=== PATIENT | female | born 1975 | race Caucasian/White ===

== ENCOUNTER 2020-11-16 22:39 | Emergency (ER) | payer OTHER ==
[~2020-11-16] VITALS: Ht 157.5 cm; Wt 115.2 kg
[~2020-11-16 22:39] MED LIST: BUSPAR 5 MG TABL5 M1; COZAAR 25 MG TA25 M1 PO; DUONEB 2.5-0.5 M3 ML INH; ERYTHROMYCIN E3.5 G3 OPHTHALMIC; ESKALITH300 MG; FLONASE 0.05%50 MCG NASAL; KEFLEX500 MG PO; LEVAQUIN 500 M500 MG PO; LEVOTHYROXIN0.075 MG PO; NORCO 5-325 TA1 EACH PO; PAXIL10 MG; PREDNISONE 20 M20 M1 PO; PROMETHAZINE-D120 ML PO; XANAX 0.5 MG0.5 M1
[2020-11-16 23:17] LABS: URINE BILIRUBIN NEGATIVE (Negative); URINE BLOOD 2+ (Negative); URINE CLARITY CLOUDY; URINE COLOR YELLOW; URINE GLUCOSE-RANDOM NEGATIVE (Negative); URINE KETONES NEGATIVE (Negative); URINE PROTEIN 2+ (Negative); URINE SPECIFIC GRAVITY 1.015 (1.005-1.030); URINE UROBILINOGEN 0.2 E.U./dl (0.2-1.0)
[2020-11-16 23:20] LABS: URINE LEUKOCYTES-REFLEX 3+ (Negative); URINE NITRITE-REFLEX POSITIVE (Negative)
[2020-11-16] MEDS ORDERED: PYRIDIUM200 M2 PO (23:37)
[2020-11-16] MEDS ORDERED: CEPHALEXIN250 MG PO (23:37)
[2020-11-16 23:40] LABS: CASTS None Seen /LPF (None Seen); SQUAMOUS 4-10 Moderate /LPF (0-3)
[2020-11-16 23:41] LABS: BACTERIA-REFLEX >30 Many /HPF (None Seen); CRYSTALS None Seen /LPF (None Seen); URINE WBC-REFLEX >25 Many /HPF (0-5)
[2020-11-17 00:03] VITALS: BP 180/98
== END 2020-11-17 00:04 | disposition home or self-care (01) ==
LOC: M.ERS 22:39
PROVIDERS: Emergency Medicine
DX: N39.0 Urinary tract infection, site not specified (principal); I10 Essential (primary) hypertension; F41.9 Anxiety disorder, unspecified; F31.9 Bipolar disorder, unspecified; F17.200 Nicotine dependence, unspecified, uncomplicated; Z79.899 Other long term (current) drug therapy; Z88.5 Allergy status to narcotic agent; Z88.2 Allergy status to sulfonamides

== ENCOUNTER 2021-01-22 13:16 | Emergency (ER) | payer OTHER ==
[~2021-01-22] VITALS: Ht 157.5 cm; Wt 117.9 kg
[~2021-01-22 13:16] MED LIST changes: +CEPHALEXIN250 MG PO; +PYRIDIUM200 M2 PO
[2021-01-22] MEDS ORDERED: ACYCLOVIR 200200 MG PO (13:38)
[2021-01-22 14:22] LABS: HEMATOCRIT 44.6 % (37.0-47.0); HEMOGLOBIN 14.8 gm/dL (12.0-15.0); MCH 31.3 pg (26.0-34.0); MCHC 33.2 g/dL (28.0-37.0); MCV 94.4 fL (80.0-100.0); MPV 7.2 fl. (7.2-11.1); NUCLEATED RBCS 0 /100WBC; PLATELET COUNT* 428 thou/uL (150-400); RBC 4.72 mil/uL (4.20-5.00); RDW-CV 14.7 % (10.5-14.5); WBC 14.8 thou/uL (4.0-11.0)
[2021-01-22 14:23] LABS: URINE BILIRUBIN NEGATIVE (Negative); URINE BLOOD 1+ (Negative); URINE CLARITY CLEAR; URINE COLOR YELLOW; URINE GLUCOSE-RANDOM 2+ (Negative); URINE KETONES NEGATIVE (Negative); URINE LEUKOCYTES NEGATIVE (Negative); URINE NITRITE NEGATIVE (Negative); URINE PROTEIN 2+ (Negative); URINE UROBILINOGEN 0.2 E.U./dl (0.2-1.0)
[2021-01-22 14:31] LABS: CASTS None Seen /LPF (None Seen); SQUAMOUS >10 Many /LPF (0-3)
[2021-01-22 14:32] LABS: BACTERIA 1-9 Few /HPF (None Seen); CRYSTALS None Seen /LPF (None Seen); URINE RBC 3-10 Few /HPF (0-2); URINE WBC 0-5 Rare /HPF (0-5)
[2021-01-22 14:40] LABS: CALCIUM 8.9 mg/dL (8.5-10.1); CREATININE 0.9 mg/dL (0.6-1.3); POTASSIUM 4.6 mmol/L (3.5-5.1)
[2021-01-22 15:06] LABS: ABSOLUTE LYMPHOCYTES 1.3 thou/uL (0.8-5.3); ABSOLUTE MONOCYTES 0.4 thou/uL (0.0-1.2); PROMYELOCYTES 1 %
[2021-01-22 15:07] LABS: PLATELET ESTIMATE ADEQUATE
[2021-01-22 15:08] LABS: MACROCYTES Occasional
[2021-01-22] MEDS ORDERED: CIPROFLOX-DEXA7.5 ML OTIC (15:51)
[2021-01-22 15:59] VITALS: BP 183/100
[2021-01-22] MEDS ORDERED: CIPRODEX OTIC7.5 ML OTIC (20:12)
--- NOTE | 2021-01-23 11:00 | EKG ---
[place] [address] ELECTROCARDIOGRAM REPORT Name: CHARLEY CROFTRoom: [facility].#: [id number] Admission: 01/22/21 Attend Phys: Discharge: 01/22/21 Date of : 75 Date of Service: 01/22/21 1416 Report #: [id number] THIS REPORT FOR: //name// [facility] ED Test Date: 2021-01-22 Test Time: 14:16:58 Pat Name: CHARLEY CROFT Department: Room: Gender: F [employer]: STUDENT : 1975 Requested By: Tal Alcala Order Number: [id number] MD: Shan Rae Measurements Intervals Ethel Rate: 95 P: 69 WV: 135 QRS: -1 QRSD: 105 T: 160 QT: 353 QTc: 444 Interpretive Statements Sinus rhythm Probable anterior infarct, age indeterminate Anterolateral ST-T abnormality; ischemia must be considered No previous ECG available for comparison Electronically Signed On 01-23-2021 11:00:02 [employer] by Shan Rae [email or web address] <ELECTRONICALLY SIGNED> By: Shan Rae MD, FAC 01/23/21 1100 1416 1416 Shan [email or web address] MD, [facility] /EPI
== END 2021-01-22 16:00 | disposition home or self-care (01) ==
LOC: M.ERS 13:16
PROVIDERS: Physician Assistant
DX: H60.91 Unspecified otitis externa, right ear (principal); I10 Essential (primary) hypertension; Z88.5 Allergy status to narcotic agent; Z88.2 Allergy status to sulfonamides; Z79.899 Other long term (current) drug therapy